=== PATIENT | male | born 1985 | race Hispanic/Latino ===

== ENCOUNTER 2023-11-15 16:55 | Emergency (ER) | payer OTHER ==
[~2023-11-15] VITALS: Ht 170.2 cm; Wt 95.3 kg
[2023-11-15] MEDS: METOCLOPRAMIDE 10 MG/2 ML VIAL IVP STA (17:30)
[2023-11-15] MEDS: 0.9%NACL 1000ML 1,000 ML IV STA ×2 (17:30→20:03)
[2023-11-15 17:45] LABS: BASOPHILS # (AUTO) 0.02 K/uL (0.00-0.20); BASOPHILS % (AUTO) 0.4 % (0.0-5.0); EOSINOPHILS # (AUTO) 0.15 K/uL (0.00-0.70); EOSINOPHILS % (AUTO) 2.8 % (0.0-8.0); HEMATOCRIT 37.7 % (42-54); IMMATURE GRANULOCYTE ABSOLUTE 0.04 K/uL (0-1); LYMPHOCYTES # (AUTO) 1.2 K/uL (1.0-4.8); LYMPHOCYTES % (AUTO) 21.7 % (21.0-51.0); MEAN CORPUSCULAR HGB CONC 36.6 g/dL (32.0-36.0); MEAN CORPUSCULAR VOLUME 84.7 fL (79-99); MONOCYTES # (AUTO) 0.4 K/uL (0.1-1.0); MONOCYTES % (AUTO) 7.2 % (3.0-13.0); NEUTROPHILS # (AUTO) 3.6 K/uL (1.8-7.7); NEUTROPHILS % (AUTO) 67.2 % (40.0-77.0); PLATELET COUNT (AUTO) 192 K/uL (130-400); RED BLOOD CELL COUNT(AUTO) 4.45 MIL/uL (4.50-6.20); RED CELL DISTRIBUTION WIDTH 11.4 % (11.0-15.5); WHITE BLOOD COUNT (AUTO) 5.4 K/uL (4.8-10.8)
[2023-11-15 18:12] LABS: POTASSIUM 3.7 mmol/L (3.5-5.1)
[2023-11-15 19:13] LABS: APPEARANCE,URINE CLEAR (CLEAR); BILIRUBIN,URINE NEGATIVE (NEGATIVE); COLOR,URINE COLORLESS (YELLOW); GLUCOSE, URINE (UA) >=1000 mg/dL (NEGATIVE); KETONES,URINE 5 mg/dL (NEGATIVE); LEUKOCYTE ESTERASE ,URINE NEGATIVE Leu/uL (NEGATIVE); NITRATE,URINE NEGATIVE (NEGATIVE); OCCULT BLOOD,URINE NEGATIVE (NEGATIVE); PROTEIN,URINE NEGATIVE (NEGATIVE); UROBILINOGEN,URINE 0.2 mg/dL (0.2-1.0)
[2023-11-15 19:15] LABS: ADD UA MICROSCOPIC YES
[2023-11-15 19:37] LABS: RBC,URINE 0-1 /HPF (0-1); SQUAMOUS EPITHELIAL CELL,UR RARE /HPF (0-2); WBC,URINE 0-1 /HPF (0-1)
[2023-11-15 19:51] VITALS: BP 142/84; PULSE 86; RESP 18; O2SAT 97
== END 2023-11-15 20:19 | disposition home or self-care (01) ==
LOC: EDBD 16:55 → EDH 16:55
DX: R73.9 Hyperglycemia, unspecified (principal); E86.0 Dehydration; R51.9 Headache, unspecified; I10 Essential (primary) hypertension
CPT/HCPCS: 99285; 96374; 71045; 82550; 84484; 80048; 85025; 81001; 36415; 93005; J7030; J2765

== ENCOUNTER 2024-02-20 12:40 | Emergency (ER) | payer OTHER ==
[~2024-02-20] VITALS: Ht 170.2 cm; Wt 98.4 kg
[2024-02-20 13:03] LABS: BASOPHILS # (AUTO) 0.02 K/uL (0.00-0.20); BASOPHILS % (AUTO) 0.4 % (0.0-5.0); EOSINOPHILS # (AUTO) 0.12 K/uL (0.00-0.70); EOSINOPHILS % (AUTO) 2.2 % (0.0-8.0); HEMATOCRIT 39.8 % (42-54); IMMATURE GRANULOCYTE ABSOLUTE 0.01 K/uL (0-1); LYMPHOCYTES # (AUTO) 1.1 K/uL (1.0-4.8); LYMPHOCYTES % (AUTO) 20.4 % (21.0-51.0); MEAN CORPUSCULAR HEMOGLOBIN 30.2 pg (27.0-33.0); MEAN CORPUSCULAR HGB CONC 35.7 g/dL (32.0-36.0); MEAN CORPUSCULAR VOLUME 84.7 fL (79-99); MONOCYTES # (AUTO) 0.3 K/uL (0.1-1.0); MONOCYTES % (AUTO) 5.1 % (3.0-13.0); NEUTROPHILS # (AUTO) 3.9 K/uL (1.8-7.7); NEUTROPHILS % (AUTO) 71.7 % (40.0-77.0); PLATELET COUNT (AUTO) 230 K/uL (130-400); RED CELL DISTRIBUTION WIDTH 12.8 % (11.0-15.5); WHITE BLOOD COUNT (AUTO) 5.4 K/uL (4.8-10.8)
[2024-02-20 13:11] LABS: CREATININE 0.9 mg/dL (0.5-1.3); POTASSIUM 4.1 mmol/L (3.5-5.1)
[2024-02-20 13:15] LABS: ALBUMIN 4.3 g/dL (3.5-5.0); BILIRUBIN,TOTAL 0.7 mg/dL (0.2-1.0); TOTAL PROTEIN, SERUM 7.8 g/dL (6.0-8.3)
[2024-02-20 13:30] LABS: B-TYPE NATRIURETIC PEPTIDE 8 pg/mL (0-100)
[2024-02-20 14:20] LABS: ADD UA MICROSCOPIC YES; APPEARANCE,URINE CLEAR (CLEAR); BILIRUBIN,URINE NEGATIVE (NEGATIVE); COLOR,URINE LIGHT-YELLOW (YELLOW); GLUCOSE, URINE (UA) >=1000 mg/dL (NEGATIVE); KETONES,URINE 10 mg/dL (NEGATIVE); LEUKOCYTE ESTERASE ,URINE NEGATIVE Leu/uL (NEGATIVE); NITRATE,URINE NEGATIVE (NEGATIVE); OCCULT BLOOD,URINE NEGATIVE (NEGATIVE); PROTEIN,URINE NEGATIVE (NEGATIVE); UROBILINOGEN,URINE 0.2 mg/dL (0.2-1.0)
[2024-02-20 14:21] LABS: WBC,URINE 0-1 /HPF (0-1)
[2024-02-20] MEDS ORDERED: SUCR1TAB28 PO (16:54)
[2024-02-20] MEDS ORDERED: OMEP40CA21 PO (16:54)
[2024-02-20 17:00] VITALS: BP 145/78; PULSE 78; RESP 14; TEMP 98.2; O2SAT 98
== END 2024-02-20 17:02 | disposition home or self-care (01) ==
LOC: EDH 12:40
DX: K29.70 Gastritis, unspecified, without bleeding (principal); R07.89 Other chest pain; I10 Essential (primary) hypertension; E11.9 Type 2 diabetes mellitus without complications
CPT/HCPCS: 36415; 71045; 80053; 81001; 82550; 83880; 84484; 85025; 93005